=== PATIENT | male | born 1950 | race Caucasian/White ===

== ENCOUNTER 2023-04-15 13:09 | Outpatient (AMB) | payer MEDICARE, OTHER, SELFPAY ==
--- NOTE | 2023-04-15 13:27 | HO.NEPHOV_ITS ---
HPI HPI Comments History of Present Illness Details Adrian is a middle-aged man with a history of chronic kidney disease in the setting of renal tumor is status post resection in 2010. He has a history of hypertension which has been well controlled. He is on low- dose of lisinopril 10 mg which seems to be working well. In the past he was on amlodipine which caused edema which was later discontinued. He was on a small dose of hydrochlorothiazide but the [place] bump in serum creatinine and hydrochlorothiazide was discontinued. History of prostate cancer. Status post prostatectomy any sustained postop [place] [facility]. Serum creatinine peaked to 2.4 and return to baseline of 1.8 at time of discharge. History of CTA which showed 70-99% stenosis of the left circumflex; status post coronary angiogram. Lesion was not significant enough to require a stent. Diagnosed with cholangiocarcinoma in 2021. Underwent fluoroscopic removal followed by chemotherapy. He developed significant diarrhea with chemotherapy leading to hypotension and volume depletion sustained acute kidney injury due to hypoperfusion. With IV hydration serum creatinine decreased from 2.6-1.3 back in 2021. S He is here for follow-up today. No specific complaints. He has been monitoring his blood pressure at home which has been well controlled. [facility] Medical History (Updated 04/15/23 @ 16:55 by Rupesh Butcher MD) Urinary bladder calculus Hyperlipidemia Obstructive sleep apnea syndrome Malignant neoplasm of prostate Hypertension Hyperkalemia H/O heart failure Dyspnea on exertion CKD (chronic kidney disease) stage 2, GFR 60-89 ml/min Chronic diastolic congestive heart failure Carcinoma of prostate Renal cell cancer Surgical History Hx of tonsillectomy H/O prostatectomy History of nephrectomy History of surgery of liver History of cholecystectomy Vital Signs 04/15/23 13:33 Height 5 ft 8.5 in Weight 196 lb 4 oz BMI 29.4 BP 140/76 H Blood Pressure Location Lt brachial Position Sitting Pulse 60 Pulse Source Pulse Oximeter Pulse Oximetry (%) 99 Oxygen Delivery Method Room Air Physical Exam Vital Signs: Last Vital Signs Pulse 60 04/15/23 13:33 BP 140/76 H 04/15/23 13:33 Pulse Ox 99 04/15/23 13:33 Oxygen Delivery Method Room Air 04/15/23 13:33 BMI result Body Mass Index 29.4 Repeat BP 128/70 by me Const General: comfortable Nutritional Appearance: well nourished Orientation/consciousness: patient oriented x3 HEENT Head: Yes normal to inspection Mouth: moist mucous membranes Neck Neck: Yes supple and Yes no JVD Resp Auscultation: clear to auscultation bilaterally, no rales and rub present Cardio Jugular venous distension: no JVD Palpation: no palpable S3 and no palpable S4 Heart sounds: no rubs GI Palpation (GI): Soft to palpation and nontender Percussion: No Fluid wave present General: Yes no CVA tenderness Back/Spine/Pelvis Back: no CVA tenderness Skin General skin exam: no rashes or lesions noted Neuro General: patient oriented x3 Extrem General: Yes no pedal edema and No clubbing Results Reviewed Results Reviewed: Recent lab results were reviewed. Creatinine is 1.39. Assessment & Plan Assessment & Plan (1) CKD (chronic kidney disease) stage 3, GFR 30-59 ml/min: Code(s): N18.30 - Chronic kidney disease, stage 3 unspecified Plan: Adrian has CKD 3 in the setting of solitary kidney. Baseline creatinine is 1.3 mg/dL. Acute kidney injury has resolved. Goal is to slow the progression of disease. We will continue monitor renal function closely. Keep intake monitor output and avoid nephrotoxic agents including NSAIDs. 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 (3) Anemia due to chronic kidney disease: Code(s): N18.9 - Chronic kidney disease, unspecified; D63.1 - Anemia in chronic kidney disease Plan: Anemia is improving No indication for Epogen (4) Hypertension: Code(s): I10 - Essential (primary) hypertension Plan: Blood pressure is well controlled. Initial reading was elevated most likely due to superimposed white coat effect. He should stay on low-sodium diet. Continue same dose of lisinopril. No changes were made to his antihypertensive regimen. Increase to monitor blood pressure at home and call me if systolic blood pressure stays above 140 mmHg (5) Nephrolithiasis: Code(s): N20.0 - Calculus of kidney Plan: History of recurrent bladder calculi. Increase to increase his fluid intake to maintain urine output of 2 L. Low-sodium diet. Continue to monitor Coding Level of Care Code Est Pt Level 4 (52932) Diagnoses CKD (chronic kidney disease) stage 3, GFR 30-59 ml/min N18.30 Cholangiocarcinoma C22.1 Anemia due to chronic kidney disease N18.9; D63.1 Hypertension I10 Nephrolithiasis N20.0
[2023-04-15 13:33] VITALS: BP 140/76; PULSE 60; O2SAT 99; BMI 29.4
== END 2023-04-15 13:50 | disposition home or self-care (01) ==
PROVIDERS: PCP Internal Medicine; Visit Provider Internal Medicine Hypertension Specialist
DX: N18.30 Chronic kidney disease, stage 3 unspecified (principal); C22.1 Intrahepatic bile duct carcinoma; N18.9 Chronic kidney disease, unspecified; D63.1 Anemia in chronic kidney disease; I12.9 Hypertensive chronic kidney disease with stage 1 through stage 4 chronic kidney disease, or unspecified chronic kidney disease; N20.0 Calculus of kidney
CPT/HCPCS: 99214

== ENCOUNTER → 2023-04-15 13:09 | Outpatient (BNVA) | payer MEDICARE, OTHER, SELFPAY | PROVIDERS: PCP Internal Medicine; Visit Provider Internal Medicine Hypertension Specialist | DX: I12.9 Hypertensive chronic kidney disease with stage 1 through stage 4 chronic kidney disease, or unspecified chronic kidney disease (principal); N18.30 Chronic kidney disease, stage 3 unspecified; C22.1 Intrahepatic bile duct carcinoma; D63.1 Anemia in chronic kidney disease; N20.0 Calculus of kidney | CPT/HCPCS: 99212 ==

== ENCOUNTER 2023-11-22 13:34 | Outpatient (AMB) | payer MEDICARE, OTHER, SELFPAY ==
--- NOTE | 2023-11-22 13:36 | HO.NEPHOV_ITS ---
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 Accompanied by: Self / Same As Patient Allergies amoxicillin Allergy (Verified 11/22/23 13:41) Rash epinephrine Adverse Reaction (Verified 11/22/23 13:41) Palpitations Medication List - Last Reconciled 11/22/23 by Rupesh Butcher MD aspirin 81 mg PO DAILY atorvastatin 40 mg PO DAILY escitalopram oxalate (Lexapro) 10 mg PO DAILY hydrocodone-acetaminophen 5-300 mg 1 tab PO BEDTIME PRN lisinopril 10 mg PO DAILY lorazepam 0.5 mg PO DAILY PRN metoprolol succinate ER 12.5 mg PO DAILY nitroglycerin (Nitrostat) 0.4 mg sublingual Q5M PRN HPI Comments Details: Adrian is a middle-aged man with a history of chronic kidney disease in the setting of renal tumor is status post resection in 2010. He has a history of hypertension which has been well controlled. He is on low- dose of lisinopril 10 mg which seems to be working well. In the past he was on amlodipine which caused edema which was later discontinued. He was on a small dose of hydrochlorothiazide but the [place] bump in serum creatinine and hydrochlorothiazide was discontinued. History of prostate cancer. Status post prostatectomy any sustained postop [place] [facility]. Serum creatinine peaked to 2.4 and return to baseline of 1.8 at time of discharge. History of CTA which showed 70-99% stenosis of the left circumflex; status post coronary angiogram. Lesion was not significant enough to require a stent. Diagnosed with cholangiocarcinoma in 2021. Underwent fluoroscopic removal followed by chemotherapy. He developed significant diarrhea with chemotherapy leading to hypotension and volume depletion sustained acute kidney injury due to hypoperfusion. With IV hydration serum creatinine decreased from 2.6-1.3 back in 2021. S He is here for follow-up today. No specific complaints. He has been monitoring his blood pressure at home which has been well controlled. 11/22/2023. Since last visit he has gained more than 15 lb. He feels depressed and Lexapro has been added. He admits to binge eating and he has also stopped exercising. Recently had a CT scan without any recurrence of the malignancy. He has not checked his blood pressure at home. He has no new complaints today. COUNT INCLUDES THE [facility] Medical History (Updated 04/15/23 @ 16:55 by Rupesh Butcher MD) Urinary bladder calculus Hyperlipidemia Obstructive sleep apnea syndrome Malignant neoplasm of prostate Hypertension Hyperkalemia H/O heart failure Dyspnea on exertion CKD (chronic kidney disease) stage 2, GFR 60-89 ml/min Chronic diastolic congestive heart failure Carcinoma of prostate Renal cell cancer Surgical History Hx of tonsillectomy H/O prostatectomy History of nephrectomy History of surgery of liver History of cholecystectomy Physical Exam Vital Signs: Last Vital Signs Pulse 69 11/22/23 13:37 BP 142/80 H 11/22/23 13:37 Pulse Ox 96 11/22/23 13:37 Oxygen Delivery Method Room Air 11/22/23 13:37 BMI result Body Mass Index 31.6 Repeat BP 128/70 by [place] Const General: comfortable Nutritional Appearance: well nourished Orientation/consciousness: patient oriented x3 HEENT Head: Yes normal to inspection Mouth: moist mucous membranes Eyes General: appearance normal, both eyes and all related structures Visual Shrestha: normal visual shrestha by confrontation Neck Neck: Yes supple and Yes no JVD Resp Effort & Inspection: normal respiratory effort and respiratory effort not decreased Auscultation: clear to auscultation bilaterally, no rales and rub present Cardio Jugular venous distension: no JVD Palpation: no palpable S3 and no palpable S4 Heart sounds: no rubs GI Inspection: Yes normal to inspection Palpation (GI): Soft to palpation and nontender Percussion: No Fluid wave present Auscultation: normal bowel sounds General: Yes no CVA tenderness Back/Spine/Pelvis Back: no CVA tenderness Skin General skin exam: no rashes or lesions noted Neuro General: patient oriented x3 Extrem General: Yes no pedal edema and No clubbing Results Reviewed Results Reviewed: Cr. 1.39 Nephrology Results: No Data to Display Assessment & Plan Assessment & Plan (1) CKD (chronic kidney disease) stage 3, GFR 30-59 ml/min: Code(s): N18.30 - Chronic kidney disease, stage 3 unspecified Category: Medical Plan: Adrian has CKD 3 in the setting of solitary kidney. Baseline creatinine is 1.3 mg/dL. Acute kidney injury has resolved. Goal is to slow the progression of disease. We will continue monitor renal function closely. Keep intake monitor output and avoid nephrotoxic agents including NSAIDs. 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 (3) Anemia due to chronic kidney disease: Code(s): N18.9 - Chronic kidney disease, unspecified; D63.1 - Anemia in chronic kidney disease Category: Medical Plan: Anemia is improving No indication for Epogen (4) Hypertension: Code(s): I10 - Essential (primary) hypertension Category: Medical Plan: Blood pressure is well controlled. Initial reading was elevated most likely due to superimposed white coat effect. He should stay on low-sodium diet. Continue same dose of lisinopril. No changes were made to his antihypertensive regimen. Increase to monitor blood pressure at home and call me if systolic blood pressure stays above 140 mmHg (5) Nephrolithiasis: Code(s): N20.0 - Calculus of kidney Category: Medical Plan: History of recurrent bladder calculi. Increase to increase his fluid intake to maintain urine output of 2 L. Low-sodium diet. Continue to monitor Coding Level of Care Code Est Pt Level 4 (52806) Diagnoses CKD (chronic kidney disease) stage 3, GFR 30-59 ml/min N18.30 Cholangiocarcinoma C22.1 Anemia due to chronic kidney disease N18.9; D63.1 Hypertension I10 Nephrolithiasis N20.0
[2023-11-22 13:37] VITALS: BP 142/80; PULSE 69; O2SAT 96; BMI 31.6
[2023-11-22 14:44] VITALS: BP 134/70
== END 2023-11-22 13:56 | disposition home or self-care (01) ==
PROVIDERS: PCP Internal Medicine; Visit Provider Internal Medicine Hypertension Specialist
DX: N18.30 Chronic kidney disease, stage 3 unspecified (principal); C22.1 Intrahepatic bile duct carcinoma; N18.9 Chronic kidney disease, unspecified; D63.1 Anemia in chronic kidney disease; I12.9 Hypertensive chronic kidney disease with stage 1 through stage 4 chronic kidney disease, or unspecified chronic kidney disease; N20.0 Calculus of kidney
CPT/HCPCS: 99214

== ENCOUNTER → 2023-11-22 13:34 | Outpatient (BNVA) | payer MEDICARE, OTHER, SELFPAY | PROVIDERS: PCP Internal Medicine; Visit Provider Internal Medicine Hypertension Specialist | DX: I12.9 Hypertensive chronic kidney disease with stage 1 through stage 4 chronic kidney disease, or unspecified chronic kidney disease (principal); N18.30 Chronic kidney disease, stage 3 unspecified; D63.1 Anemia in chronic kidney disease; N20.0 Calculus of kidney; C22.1 Intrahepatic bile duct carcinoma | CPT/HCPCS: 99212 ==

== ENCOUNTER 2024-04-18 13:23 | Outpatient (AMB) | payer MEDICARE, OTHER, SELFPAY ==
--- NOTE | 2024-04-18 13:24 | HO.NEPHOV ---
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: No Accompanied by: Self / Same As Patient Allergies amoxicillin Allergy (Verified 04/18/24 13:27) Rash epinephrine Adverse Reaction (Verified 04/18/24 13:27) Palpitations Medication List - Last Reconciled 04/18/24 by Rupesh Butcher MD aspirin 81 mg PO DAILY atorvastatin 40 mg PO DAILY hydrocodone-acetaminophen 5-300 mg 1 tab PO BEDTIME PRN lisinopril 10 mg PO DAILY metoprolol succinate ER 12.5 mg PO DAILY nitroglycerin (Nitrostat) 0.4 mg sublingual Q5M PRN HPI Comments Details: Adrian is a middle-aged man with a history of chronic kidney disease in the setting of renal tumor is status post resection in 2010. He has a history of hypertension which has been well controlled. He is on low-dose of lisinopril 10 mg which seems to be working well. In the past he was on amlodipine which caused edema which was later discontinued. He was on a small dose of hydrochlorothiazide but the [place] bump in serum creatinine and hydrochlorothiazide was discontinued. History of prostate cancer. Status post prostatectomy any sustained postop [place] [facility]. Serum creatinine peaked to 2.4 and return to baseline of 1.8 at time of discharge. History of CTA which showed 70-99% stenosis of the left circumflex; status post coronary angiogram. Lesion was not significant enough to require a stent. Diagnosed with cholangiocarcinoma in 2021. Underwent fluoroscopic removal followed by chemotherapy. He developed significant diarrhea with chemotherapy leading to hypotension and volume depletion sustained acute kidney injury due to hypoperfusion. With IV hydration serum creatinine decreased from 2.6-1.3 back in 2021. S He is here for follow-up today. No specific complaints. He has been monitoring his blood pressure at home which has been well controlled. 11/22/2023. Since last visit he has gained more than 15 lb. He feels depressed and Lexapro has been added. He admits to binge eating and he has also stopped exercising. Recently had a CT scan without any recurrence of the malignancy. He has not checked his blood pressure at home. He has no new complaints today. 04/18/24 Recent spike in BP- With exercise and 5 lbs weight loss, BP is better Stopped Lexapro 2 weeks ago due to weight gain [facility] Medical History (Updated 04/15/23 @ 16:55 by Rupesh Butcher MD) Urinary bladder calculus Hyperlipidemia Obstructive sleep apnea syndrome Malignant neoplasm of prostate Hypertension Hyperkalemia H/O heart failure Dyspnea on exertion CKD (chronic kidney disease) stage 2, GFR 60-89 ml/min Chronic diastolic congestive heart failure Carcinoma of prostate Renal cell cancer Surgical History Hx of tonsillectomy H/O prostatectomy History of nephrectomy History of surgery of liver History of cholecystectomy Physical Exam Vital Signs: BMI result Body Mass Index 30.7 Results Reviewed Nephrology Results: No Data to Display Assessment & Plan Assessment & Plan (1) CKD (chronic kidney disease) stage 3, GFR 30-59 ml/min: Code(s): N18.30 - Chronic kidney disease, stage 3 unspecified Category: Medical Plan: Adrian has CKD 3 in the setting of solitary kidney. Baseline creatinine is 1.3 mg/dL. Acute kidney injury has resolved. Goal is to slow the progression of disease. We will continue monitor renal function closely. Keep intake monitor output and avoid nephrotoxic agents including NSAIDs. . 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 (3) Anemia due to chronic kidney disease: Code(s): N18.9 - Chronic kidney disease, unspecified; D63.1 - Anemia in chronic kidney disease Category: Medical Plan: Anemia is improving No indication for Epogen (4) Hypertension: Code(s): I10 - Essential (primary) hypertension Category: Medical Plan: Blood pressure is well controlled. Initial reading was elevated most likely due to superimposed white coat effect. He should stay on low-sodium diet. Continue same dose of lisinopril. No changes were made to his antihypertensive regimen. Increase to monitor blood pressure at home and call me if systolic blood pressure stays above 140 mmHg (5) Nephrolithiasis: Code(s): N20.0 - Calculus of kidney Category: Medical Plan: History of recurrent bladder calculi. Increase to increase his fluid intake to maintain urine output of 2 L. Low-sodium diet. Continue to monitor . Orders: Orders Basic Metabolic Panel 6 Months D63.1 - Anemia in chronic kidney disease, I10 - Essential (primary) hypertension, N18.30 - Chronic kidney disease, stage 3 unspecified, N18.9 - Chronic kidney disease, unspecified Complete Blood Count no Diff 6 Months D63.1 - Anemia in chronic kidney disease, I10 - Essential (primary) hypertension, N18.30 - Chronic kidney disease, stage 3 unspecified, N18.9 - Chronic kidney disease, unspecified Coding Level of Care Code Est Pt Level 4 (75670) Diagnoses CKD (chronic kidney disease) stage 3, GFR 30-59 ml/min N18.30 Cholangiocarcinoma C22.1 Anemia due to chronic kidney disease N18.9; D63.1 Hypertension I10 Nephrolithiasis N20.0
[2024-04-18 13:25] VITALS: BP 130/72; PULSE 76; O2SAT 98; BMI 30.7
== END 2024-04-18 13:42 | disposition home or self-care (01) ==
PROVIDERS: PCP Internal Medicine; Visit Provider Internal Medicine Hypertension Specialist
DX: I12.9 Hypertensive chronic kidney disease with stage 1 through stage 4 chronic kidney disease, or unspecified chronic kidney disease (principal); N18.30 Chronic kidney disease, stage 3 unspecified; C22.1 Intrahepatic bile duct carcinoma; D63.1 Anemia in chronic kidney disease; N20.0 Calculus of kidney
CPT/HCPCS: 99214

== ENCOUNTER → 2024-04-18 13:23 | Outpatient (BNVA) | payer MEDICARE, OTHER, SELFPAY | PROVIDERS: PCP Internal Medicine; Visit Provider Internal Medicine Hypertension Specialist | DX: I12.9 Hypertensive chronic kidney disease with stage 1 through stage 4 chronic kidney disease, or unspecified chronic kidney disease (principal); N18.30 Chronic kidney disease, stage 3 unspecified; D63.1 Anemia in chronic kidney disease; N20.0 Calculus of kidney; C22.1 Intrahepatic bile duct carcinoma | CPT/HCPCS: 99212 ==